=== PATIENT | female | born 1935 | race Caucasian/White ===

== ENCOUNTER 2018-09-21 15:15 | Inpatient (IN) | payer MEDICARE, BC ==
[2018-09-21] VITALS (245 sets, daily range): BP systolic 108–129; BP diastolic 58–96; PULSE 64–95; TEMP 98.1–99.1; O2SAT 83–100
[~2018-09-21] VITALS: Ht 157.5 cm; Wt 47.9 kg
[~2018-09-21 15:15] MED LIST: ASPIRIN 81M81 MG/TA2 PO; BYSTOLIC5 MG PO; CALCIUM 600MG+D1 TAB PO; CARDIZEM CD 18180 MG PO; FOSAMAX 70MG TA70 MG PO; GLUCOPHAGE500 MG/TAB PO; IPRATROPIUM BROM3 M1 IH; LEVAQUIN 750MG750 M1 PO; LEVEMIR SQ; MULTAQ400 MG PO; PERFOROMIS20 MCG/2 M IH; PREDNISONE20 MG PO; PRINIVIL40 MG PO; PULMICORT0.5 MG/2 M IH; TENORMIN 5050 MG/TAB PO; XARELTO STARTER20 MG PO; ZOCOR 20MG20 MG PO
[2018-09-21 15:47] LABS: BASO # 0.1 (0.0-0.2); BASO % 0.4 % (0.0-2.0); EOS # 0.1 (0.0-0.7); EOS % 0.4 % (0-4.0); GRAN # 9.9 (1.4-6.5); GRAN % 74.9 % (42.2-75.2); HEMOGLOBIN 14.2 g/dl (12.5-16.0); LYMPH # 1.6 (1.2-3.4); LYMPH % 12.3 % (20.0-51.0); MEAN CELL VOLUME 85 fl (80.0-100.0); MEAN CORPUSCULAR HEMOGLOBIN 28 pg (27.0-31.0); MEAN CORPUSCULAR HGB CONC 33 g/dl (33.0-37.0); MEAN PLATELET VOLUME 12.2 fl (7.4-10.4); MONO # 1.5 (0.1-0.6); MONO % 11.5 % (1.7-9.3); PLATELET COUNT 207 K/mm3 (130-400); RED BLOOD COUNT 5.06 M/mm3 (4.10-5.30); REDCELL DISTRIBUTION WIDTH-CV 13.6 % (11.5-14.5)
[2018-09-21 15:51] LABS: INR 1.1 (0.8-3.0); PROTHROMBIN TIME 12.2 SECONDS (9.7-12.8)
[2018-09-21 16:00] LABS: ALBUMIN 4.1 gm/dL (3.5-5.0); BILIRUBIN,TOTAL 1.2 mg/dL (0.0-1.0); CALCIUM 9.9 mg/dL (8.4-10.2); CREATININE, serum 0.86 (0.52-1.25); POTASSIUM 4.5 mmol/L (3.4-5.0); TOTAL PROTEIN 7.1 gm/dL (6.4-8.2)
[2018-09-21 16:14] LABS: TROPONIN-I 0.05 ng/mL (0.000-0.035)
--- NOTE | 2018-09-21 17:25 | NUR ---
report received from Rose COST SPECIALIST at 3918. Pt arrived to ICU via stretcher at 1725. Pt A/Ox3. Denies any chest pain or SOB. Pt walked to bed without any difficulty. Pt remains on Cardizem gtt at 15mg/hr. HR Afib 80-100s. VSS. Assessment complete. Discussed plan of care with pt r/t cardizem gtt and cardiology consult. Pt verbalized understanding.
[2018-09-21 18:42] LABS: COLLECTION METHOD CLEAN CATCH
--- NOTE | 2018-09-21 19:10 | NUR ---
Bedside report given to GARRY Berg.
[2018-09-21 19:26] LABS: MUCOUS Present /lpf; PH 5 (5-8); SQUAMOUS EPITHELIAL 0-2 /hpf; URINE APPEARANCE Hazy; URINE BACTERIA Rare /hpf; URINE BILIRUBIN Negative (NEGATIVE); URINE BLOOD Negative (NEGATIVE); URINE COLOR Yellow; URINE GLUCOSE Negative (NEGATIVE); URINE KETONE Trace (NEGATIVE); URINE LEUKOCYTE ESTERASE 3+ (NEGATIVE); URINE NITRATE Positive (NEGATIVE); URINE PROTEIN(semi-quant) 1+ (NEGATIVE); URINE UROBILINOGEN Negative (NEGATIVE)
--- NOTE | 2018-09-21 21:00 | NUR ---
Assisted up to bedside commode. Tolerated transfer well, but reported shortness of air after returning to bed. After approximately 5 minutes of rest, patient reported no further shortness of air. VS remained stable; HR within normal limits. Will continue to monitor.
--- NOTE | 2018-09-21 22:07 | NUR ---
Critical troponin call received at 2206: was 0.067. Dr. Nair was notifed of last 3hr critical troponin around 0. Did not notify Dr. Nair at this time as he requested to not be called for this troponin if it came back critical. Will continue to monitor.
[2018-09-22] VITALS (361 sets, daily range): BP systolic 102–151; BP diastolic 52–87; PULSE 59–110; TEMP 97.8–98.8; O2SAT 83–100
--- NOTE | 2018-09-22 03:20 | NUR ---
Patient awake and resting in bed. No complaints at this time. Will continue to monitor.
[2018-09-22 06:11] LABS: BASO % 0.4 % (0.0-2.0); EOS # 0.1 (0.0-0.7); EOS % 0.5 % (0-4.0); GRAN # 7.2 (1.4-6.5); GRAN % 74.8 % (42.2-75.2); HEMATOCRIT 39.2 % (37.0-47.0); HEMOGLOBIN 12.7 g/dl (12.5-16.0); LYMPH # 1.2 (1.2-3.4); LYMPH % 12.5 % (20.0-51.0); MEAN CELL VOLUME 86 fl (80.0-100.0); MEAN CORPUSCULAR HEMOGLOBIN 28 pg (27.0-31.0); MEAN CORPUSCULAR HGB CONC 32 g/dl (33.0-37.0); MEAN PLATELET VOLUME 12.3 fl (7.4-10.4); MONO # 1.1 (0.1-0.6); MONO % 11.3 % (1.7-9.3); PLATELET COUNT 185 K/mm3 (130-400); RED BLOOD COUNT 4.56 M/mm3 (4.10-5.30); REDCELL DISTRIBUTION WIDTH-CV 13.6 % (11.5-14.5)
[2018-09-22 06:23] LABS: ALBUMIN 3.5 gm/dL (3.5-5.0); CALCIUM 9.3 mg/dL (8.4-10.2); CHOLESTEROL RISK RATIO 5.4; CREATININE, serum 0.9 (0.52-1.25); POTASSIUM 4.3 mmol/L (3.4-5.0); TOTAL PROTEIN 6.3 gm/dL (6.4-8.2)
[2018-09-22 06:42] LABS: TROPONIN-I 0.056 ng/mL (0.000-0.035)
--- NOTE | 2018-09-22 06:56 | NUR ---
Critical Troponin not called to Acute Coordinator as it is trending downward. Patient asymptomatic.
--- NOTE | 2018-09-22 07:28 | NUR ---
Bedside report recieved from GARRY Berg. Patient participates with all questions asked answered. Cardizem gtt infusing at 5mg/hr and concentration verified. Patient denies needs or pain at this time. POC discussed and care assumed.
--- NOTE | 2018-09-22 07:28 | NUR ---
Bedside report given to GARRY Jim. Patient care transfered.
--- NOTE | 2018-09-22 08:11 | NUR ---
Dr. Nair rounds at this time. POC discussed to include AM AISHA cardioversion with anesthsia. Patient and family questions are asked and answered. Care ongoing.
--- NOTE | 2018-09-22 09:30 | NUR ---
Patient to CT via WC with serology technician for ordered CT of chest.
--- NOTE | 2018-09-22 09:50 | NUR ---
Patient returns to ICU 4 and is replaced to monitors. LW IV blown in CT and 22g to LAC restarted by radiology. Care resumed.
--- NOTE | 2018-09-22 10:20 | NUR ---
Dr. Whaley rounds at this time. Orders as entered CPOE.
--- NOTE | 2018-09-22 10:56 | NUR ---
Anesthesia paged and call back number provided for notification of AM AISHA cardioversion. Awaiting reply.
--- NOTE | 2018-09-22 11:18 | NUR ---
Return called recieved from AA who confirm that 0830 procedure time for AISHA cardioversion 09/23/18 can be accomodated.
--- NOTE | 2018-09-22 12:53 | NUR ---
SW attended clinical rounds to discuss discharge planning. Patient lives independently at home with her daughter and plans to return there upon discharge. Patient's PCP is Dr Olivo and she obtains prescriptions from [facility]. Patient has a walker and cane at home but does not use them regularly. Patient reports she had [facility] in 2014 but does not currently use any home health services. Patient does not have a DPOA and is not interested in completing one at this time. SW does not anticipate any discharge needs.
--- NOTE | 2018-09-22 15:30 | NUR ---
Report received from Diandra CASTAÑEDA. Patient up to BR and voids without diff. Brief changed at this time. Denies further needs.
--- NOTE | 2018-09-22 19:36 | NUR ---
Bedside report received from GARRY Chang.
--- NOTE | 2018-09-22 19:37 | NUR ---
Report given to Anastasia CASTAÑEDA
--- NOTE | 2018-09-22 20:00 | NUR ---
Assessment complete. Patient resting in bed at this time watching tv. No complaints of pain or SOB. Patient does not appear to be in any distress. Patient remains in afib. No other significant findings in assessment. Patient has no current needs at this time. Will continue to monitor. Call light within reach.
[2018-09-23] VITALS (437 sets, daily range): BP systolic 125–163; BP diastolic 70–118; PULSE 85–117; TEMP 98–99.1; O2SAT 81–100
--- NOTE | 2018-09-23 | NUR ---
Patient asleep, resting comfortably in bed. No complaints of pain. No signs of distress. Vital signs remain stable. Will continue to monitor. Call light within reach.
--- NOTE | 2018-09-23 04:00 | NUR ---
Patient asleep at this time. Resting comfortably. Vitals remain stable, patient continues to be in afib. No current needs. Will continue to monitor. Call light within reach.
[2018-09-23 05:22] LABS: BASO % 0.4 % (0.0-2.0); EOS # 0.1 (0.0-0.7); EOS % 0.7 % (0-4.0); GRAN # 7.8 (1.4-6.5); GRAN % 73.5 % (42.2-75.2); HEMATOCRIT 38.1 % (37.0-47.0); HEMOGLOBIN 12.4 g/dl (12.5-16.0); LYMPH # 1.3 (1.2-3.4); LYMPH % 11.7 % (20.0-51.0); MEAN CELL VOLUME 85 fl (80.0-100.0); MEAN CORPUSCULAR HEMOGLOBIN 28 pg (27.0-31.0); MEAN CORPUSCULAR HGB CONC 33 g/dl (33.0-37.0); MEAN PLATELET VOLUME 11.9 fl (7.4-10.4); MONO # 1.4 (0.1-0.6); MONO % 13.2 % (1.7-9.3); PLATELET COUNT 179 K/mm3 (130-400); RED BLOOD COUNT 4.47 M/mm3 (4.10-5.30); REDCELL DISTRIBUTION WIDTH-CV 13.6 % (11.5-14.5)
[2018-09-23 05:33] LABS: CALCIUM 9.1 mg/dL (8.4-10.2); CREATININE, serum 0.84 (0.52-1.25); POTASSIUM 4.3 mmol/L (3.4-5.0)
--- NOTE | 2018-09-23 07:34 | NUR ---
Bedside report given to GARRY Colindres and student nurse Nelida.
--- NOTE | 2018-09-23 08:43 | NUR ---
CONSENT SIGNED AND ON CHART FORTEE CARDIOVERSION, DR. BARR AT BEDSIDE, DALTON ESPINO AT BEDSIDE FOR AISHA, TIMEOUT NOW CONDUCTED. SEDATION ADMIN INITIAL AT 0843. BITEBLOCK IN PLACE, SUCTION AND O2 OXY MASK SET UP AND PADS PLACED ON PT.
--- NOTE | 2018-09-23 08:49 | NUR ---
CARDIONVERSION DONE, SHOCKED AT 200JUELS PT CONVERTED TO SR-90'S
--- NOTE | 2018-09-23 08:50 | NUR ---
CARDIOVERTED AT 0849 PROCEDURE COMPLETED AT 0808
--- NOTE | 2018-09-23 09:13 | NUR ---
PT D/C [facility] SEDATION RECOVERY
--- NOTE | 2018-09-23 13:03 | NUR ---
First visit from the billing control clerk. No needs right now.
[2018-09-23] MEDS ORDERED: CEFTIN 250250 MG/TAB PO (13:15)
[2018-09-23] MEDS ORDERED: ELIQUIS 2.5 PO (13:15)
[2018-09-23] MEDS ORDERED: PACERONE400 MG PO (13:17)
--- NOTE | 2018-09-23 16:35 | NUR ---
Pt d/c'ed home with family, pt VSS and pt states she feels very good and ready to go home. IV d/c'ed. D/C pt explained and given to pt and family.
== END 2018-09-23 16:35 | disposition home or self-care (01) | DRG 281 ==
LOC: COL.ER 15:15 → ICU 15:50
PROVIDERS: Emergency Medicine; Physician Assistant; ADMIT Hospitalist
PROC: 5A2204Z Restoration of Cardiac Rhythm, Single (ICD-10-PCS; principal; 2018-09-23)
DX: I48.0 Paroxysmal atrial fibrillation (principal); I21.A1 Myocardial infarction type 2; J90 Pleural effusion, not elsewhere classified; N39.0 Urinary tract infection, site not specified; I10 Essential (primary) hypertension; I25.10 Atherosclerotic heart disease of native coronary artery without angina pectoris; Z95.1 Presence of aortocoronary bypass graft; E78.5 Hyperlipidemia, unspecified; E11.9 Type 2 diabetes mellitus without complications; F17.210 Nicotine dependence, cigarettes, uncomplicated; I34.0 Nonrheumatic mitral (valve) insufficiency; B96.20 Unspecified Escherichia coli [E. coli] as the cause of diseases classified elsewhere
CPT/HCPCS: 99222-AI; 99232-AI; 99239; A4216; J0696; J1650; J1815; J2405; J2704; Q9967

== ENCOUNTER 2018-10-05 06:49 | Day surgery (SDC) | payer MEDICARE, BC ==
[~2018-10-05] VITALS: Ht 157.5 cm; Wt 48.1 kg
[2018-10-05] VITALS (12 sets, daily range): BP systolic 134–149; BP diastolic 76–105; PULSE 74–120; TEMP 98
[~2018-10-05 06:49] MED LIST changes: +CEFTIN 250250 MG/TAB PO; +ELIQUIS 2.5 PO; +PACERONE400 MG PO
[2018-10-05 07:33] LABS: PROTHROMBIN TIME 22.8 SECONDS (9.7-12.8)
[2018-10-05] MEDS ORDERED: IPRATROPIUM BROM3 M1 IH (08:06)
[2018-10-05 08:10] LABS: THYROID STIMULATING HORMONE 2.2 uIU/mL (0.465-4.680)
[2018-10-05] MEDS ORDERED: PACERONE200 MG PO (08:10)
[2018-10-05] MEDS ORDERED: ELIQUIS 2.5 PO (08:21)
[2018-10-05] MEDS ORDERED: VITAMIN D31000 I1 PO (08:21)
[2018-10-05] MEDS ORDERED: XOPENEX 0.0.63 MG/3 IH (09:20)
--- NOTE | 2018-10-05 09:24 | NUR ---
Pt arrived for scheduled outpatient cardioversion. Medications and allergies reviewed and patient is currently on amiodarone 400mg bid and eliquis 2.5mg bid. Pt reported that she took both of these medications this am and has not missed any doses since starting these medication. Baseline VS and EKG verifying atrial fibrillation obtained and IV patent. Consent and allergies verified. A time out was peformed at 0900 with all staff present. The patient received 2mg of versed and 50mg of fentanyl at 0901. Adequate sedation of RASS -2 achieved and the patient received a synchronized cardioversion with 200 jou[address] Ayala. The pt did have sucessful return to sinus rhythm with some PAC's with a rate in the 70's. Dr. Ayala updated the family and patient at bedside regarding the plan of care and nursing report to Judith CASTAÑEDA who assumes care of patient.
--- NOTE | 2018-10-05 11:03 | NUR ---
Discharge instructions given to pt.pt verbalizes understanding.INT removed,catheter tip intact.Pt escorted out via wheelchair by this nurse.
[2018-10-06] MEDS ORDERED: LASIX 20MG TABL20 MG PO (11:38)
[2018-10-06] MEDS ORDERED: K-TAB20 PO (11:38)
== END 2018-10-05 11:21 | disposition home or self-care (01) ==
LOC: COL.CAR 06:49
PROVIDERS: Internal Medicine Cardiovascular Disease
DX: I48.0 Paroxysmal atrial fibrillation (principal); I42.9 Cardiomyopathy, unspecified; I25.10 Atherosclerotic heart disease of native coronary artery without angina pectoris; Z95.1 Presence of aortocoronary bypass graft; I10 Essential (primary) hypertension; I34.0 Nonrheumatic mitral (valve) insufficiency; I25.2 Old myocardial infarction; E78.2 Mixed hyperlipidemia; E11.9 Type 2 diabetes mellitus without complications; Z88.0 Allergy status to penicillin; Z79.84 Long term (current) use of oral hypoglycemic drugs
CPT/HCPCS: J2250; J3010; J7030

== ENCOUNTER 2018-10-06 08:15 | Emergency (ER) | payer MEDICARE, BC ==
[~2018-10-06] VITALS: Ht 157.5 cm; Wt 48.2 kg
[~2018-10-06 08:15] MED LIST changes: +PACERONE200 MG PO; +VITAMIN D31000 I1 PO; +XOPENEX 0.0.63 MG/3 IH
[2018-10-06 08:20] VITALS: TEMP 98.2
[2018-10-06 09:02] LABS: BASO # 0.1 (0.0-0.2); BASO % 0.4 % (0.0-2.0); EOS % 0.2 % (0-4.0); GRAN # 9.5 (1.4-6.5); GRAN % 83.1 % (42.2-75.2); HEMATOCRIT 42.1 % (37.0-47.0); HEMOGLOBIN 13.5 g/dl (12.5-16.0); LYMPH # 0.8 (1.2-3.4); LYMPH % 6.8 % (20.0-51.0); MEAN CELL VOLUME 85 fl (80.0-100.0); MEAN CORPUSCULAR HEMOGLOBIN 27 pg (27.0-31.0); MEAN CORPUSCULAR HGB CONC 32 g/dl (33.0-37.0); MEAN PLATELET VOLUME 12.1 fl (7.4-10.4); MONO % 8.9 % (1.7-9.3); PLATELET COUNT 187 K/mm3 (130-400); RED BLOOD COUNT 4.93 M/mm3 (4.10-5.30); REDCELL DISTRIBUTION WIDTH-CV 13.9 % (11.5-14.5)
[2018-10-06 09:04] LABS: INR 1.5 (0.8-3.0); PROTHROMBIN TIME 17.1 SECONDS (9.7-12.8)
[2018-10-06 09:18] LABS: ALANINE AMINOTRANSFERASE 21 U/L (9-52); ALBUMIN 3.7 gm/dL (3.5-5.0); ALKALINE PHOSPHATASE 64 U/L (50-136); ANION GAP 8 mmol/L (7-16); AST,SGOT 23 U/L (15-37); BILIRUBIN,TOTAL 0.9 mg/dL (0.0-1.0); BLOOD UREA NITROGEN 35 mg/dL (7-17); CALCIUM 9.5 mg/dL (8.4-10.2); CARBON DIOXIDE 25 mmol/L (22-30); CHLORIDE 105 mmol/L (98-107); CREATININE, serum 1.08 (0.52-1.25); GLUCOSE 141 mg/dL (74-106); LIPASE 94 U/L (23-300); POTASSIUM 4.2 mmol/L (3.4-5.0); SODIUM 137 mmol/L (137-145); TOTAL PROTEIN 6.6 gm/dL (6.4-8.2)
[2018-10-06 09:27] LABS: TROPONIN-I < 0.012 ng/mL (0.000-0.035)
[2018-10-06 10:56] LABS: COLLECTION METHOD CLEAN CATCH
[2018-10-06 11:03] LABS: PH 6 (5-8); SQUAMOUS EPITHELIAL 0-2 /hpf; URINE APPEARANCE Clear; URINE BACTERIA None Seen /hpf; URINE BILIRUBIN Negative (NEGATIVE); URINE BLOOD 1+ (NEGATIVE); URINE COLOR Straw; URINE GLUCOSE Negative (NEGATIVE); URINE KETONE 1+ (NEGATIVE); URINE LEUKOCYTE ESTERASE Negative (NEGATIVE); URINE NITRATE Negative (NEGATIVE); URINE PROTEIN(semi-quant) Negative (NEGATIVE); URINE UROBILINOGEN Negative (NEGATIVE); URINE WBC 0-2 /hpf
[2018-10-06] MEDS ORDERED: K-TAB20 PO (11:38)
[2018-10-06] MEDS ORDERED: LASIX 20MG TABL20 MG PO (11:38)
[2018-10-06 11:58] VITALS: BP 138/73; PULSE 85
== END 2018-10-06 12:00 | disposition home or self-care (01) ==
LOC: COL.ER 08:15
PROVIDERS: Emergency Medicine
DX: I11.0 Hypertensive heart disease with heart failure (principal); I50.9 Heart failure, unspecified; E78.5 Hyperlipidemia, unspecified; I48.91 Unspecified atrial fibrillation; Z79.82 Long term (current) use of aspirin; F17.210 Nicotine dependence, cigarettes, uncomplicated; Z95.1 Presence of aortocoronary bypass graft; Z79.84 Long term (current) use of oral hypoglycemic drugs
CPT/HCPCS: J1940; J2550; J3475

== ENCOUNTER 2018-11-07 17:43 | Emergency (ER) | payer MEDICARE, BC ==
[~2018-11-07] VITALS: Ht 157.5 cm; Wt 48.2 kg
[~2018-11-07 17:43] MED LIST changes: +K-TAB20 PO; +LASIX 20MG TABL20 MG PO
[2018-11-07 17:45] VITALS: TEMP 98.3
[2018-11-07 18:29] LABS: BASO # 0.1 (0.0-0.2); BASO % 0.6 % (0.0-2.0); EOS # 0.1 (0.0-0.7); EOS % 0.4 % (0-4.0); GRAN # 11.9 (1.4-6.5); GRAN % 82.2 % (42.2-75.2); HEMATOCRIT 37.8 % (37.0-47.0); HEMOGLOBIN 12.4 g/dl (12.5-16.0); LYMPH # 0.8 (1.2-3.4); LYMPH % 5.3 % (20.0-51.0); MEAN CELL VOLUME 85 fl (80.0-100.0); MEAN CORPUSCULAR HEMOGLOBIN 28 pg (27.0-31.0); MEAN CORPUSCULAR HGB CONC 33 g/dl (33.0-37.0); MEAN PLATELET VOLUME 11.5 fl (7.4-10.4); MONO # 1.6 (0.1-0.6); MONO % 10.7 % (1.7-9.3); PLATELET COUNT 217 K/mm3 (130-400); RED BLOOD COUNT 4.47 M/mm3 (4.10-5.30); REDCELL DISTRIBUTION WIDTH-CV 15.1 % (11.5-14.5)
[2018-11-07 18:41] LABS: ALBUMIN 3.7 gm/dL (3.5-5.0); BILIRUBIN,TOTAL 1.2 mg/dL (0.0-1.0); C-REACTIVE PROTEIN 2.4 mg/dL (0.0-0.9); CALCIUM 9.1 mg/dL (8.4-10.2); CREATININE, serum 0.91 (0.52-1.25); POTASSIUM 3.9 mmol/L (3.4-5.0); TOTAL PROTEIN 6.7 gm/dL (6.4-8.2)
[2018-11-07 18:51] LABS: TROPONIN-I 0.029 ng/mL (0.000-0.035)
[2018-11-07] MEDS ORDERED: LASIX 20MG TABL20 MG PO (19:15)
[2018-11-07 20:11] VITALS: BP 156/89; PULSE 85
== END 2018-11-07 20:13 | disposition home or self-care (01) ==
LOC: COL.ER 17:43
PROVIDERS: Family Medicine
DX: I50.9 Heart failure, unspecified (principal); I48.91 Unspecified atrial fibrillation; Z79.84 Long term (current) use of oral hypoglycemic drugs; Z79.82 Long term (current) use of aspirin
CPT/HCPCS: J1940; J7030

== ENCOUNTER 2018-12-30 10:06 | Day surgery (SDC) | payer MEDICARE, BC ==
[~2018-12-30] VITALS: Ht 157.5 cm; Wt 44.6 kg
[2018-12-30] VITALS (7 sets, daily range): BP systolic 151–166; BP diastolic 90–109; PULSE 74–129; TEMP 97.7
[2018-12-30] MEDS ORDERED: LASIX 20MG TABL20 MG PO (10:31)
[2018-12-30] MEDS ORDERED: MULTI VITAMINS1 TAB PO (10:32)
[2018-12-30 10:56] LABS: INR 1.9 (0.8-3.0); PROTHROMBIN TIME 22.9 SECONDS (9.7-12.8)
[2018-12-30 10:58] LABS: HEMOGLOBIN 11.7 g/dl (12.5-16.0); MEAN CELL VOLUME 85 fl (80.0-100.0); MEAN CORPUSCULAR HEMOGLOBIN 27 pg (27.0-31.0); MEAN CORPUSCULAR HGB CONC 32 g/dl (33.0-37.0); PLATELET COUNT 179 K/mm3 (130-400); RED BLOOD COUNT 4.32 M/mm3 (4.10-5.30); REDCELL DISTRIBUTION WIDTH-CV 15.6 % (11.5-14.5)
[2018-12-30 10:59] LABS: HEMATOCRIT 36.8 % (37.0-47.0)
[2018-12-30 11:03] LABS: CALCIUM 9.2 mg/dL (8.4-10.2); CREATININE, serum 1.15 (0.52-1.25); POTASSIUM 3.6 mmol/L (3.4-5.0)
--- NOTE | 2018-12-30 13:41 | NUR ---
Discharge instructions given to pt.pt verbalizes understanding.INT removed,catheter tip intact.
== END 2018-12-30 15:38 | disposition home or self-care (01) ==
LOC: COL.CAR 10:06
PROVIDERS: Internal Medicine Cardiovascular Disease
DX: I48.0 Paroxysmal atrial fibrillation (principal); I25.10 Atherosclerotic heart disease of native coronary artery without angina pectoris; I10 Essential (primary) hypertension; I34.0 Nonrheumatic mitral (valve) insufficiency; I25.2 Old myocardial infarction; E78.2 Mixed hyperlipidemia; E11.9 Type 2 diabetes mellitus without complications; Z95.1 Presence of aortocoronary bypass graft; Z88.1 Allergy status to other antibiotic agents; Z79.82 Long term (current) use of aspirin; Z79.01 Long term (current) use of anticoagulants; Z79.84 Long term (current) use of oral hypoglycemic drugs
CPT/HCPCS: J2704; J7120

== ENCOUNTER 2019-01-01 16:32 | Emergency (ER) | payer MEDICARE, BC ==
[~2019-01-01] VITALS: Ht 157.5 cm; Wt 44.1 kg
[~2019-01-01 16:32] MED LIST changes: +MULTI VITAMINS1 TAB PO
[2019-01-01 16:36] VITALS: TEMP 97.6
[2019-01-01 17:08] LABS: BASO # 0.1 (0.0-0.2); BASO % 0.4 % (0.0-2.0); EOS % 0.1 % (0-4.0); GRAN # 10.2 (1.4-6.5); GRAN % 80.9 % (42.2-75.2); HEMATOCRIT 42.6 % (37.0-47.0); HEMOGLOBIN 13.6 g/dl (12.5-16.0); LYMPH # 0.9 (1.2-3.4); LYMPH % 7.4 % (20.0-51.0); MEAN CELL VOLUME 84 fl (80.0-100.0); MEAN CORPUSCULAR HEMOGLOBIN 27 pg (27.0-31.0); MEAN CORPUSCULAR HGB CONC 32 g/dl (33.0-37.0); MEAN PLATELET VOLUME 11.9 fl (7.4-10.4); MONO # 1.4 (0.1-0.6); MONO % 10.7 % (1.7-9.3); PLATELET COUNT 213 K/mm3 (130-400); RED BLOOD COUNT 5.07 M/mm3 (4.10-5.30); REDCELL DISTRIBUTION WIDTH-CV 15.4 % (11.5-14.5)
[2019-01-01 17:09] LABS: INR 1.6 (0.8-3.0); PROTHROMBIN TIME 19.1 SECONDS (9.7-12.8)
[2019-01-01 17:17] LABS: ALANINE AMINOTRANSFERASE 43 U/L (9-52); ALBUMIN 4.1 gm/dL (3.5-5.0); ALKALINE PHOSPHATASE 94 U/L (50-136); ANION GAP 11 mmol/L (7-16); AST,SGOT 56 U/L (15-37); BILIRUBIN,TOTAL 1.2 mg/dL (0.0-1.0); BLOOD UREA NITROGEN 27 mg/dL (7-17); C-REACTIVE PROTEIN 2.2 mg/dL (0.0-0.9); CARBON DIOXIDE 28 mmol/L (22-30); CHLORIDE 103 mmol/L (98-107); CREATININE, serum 1.01 (0.52-1.25); GLUCOSE 169 mg/dL (74-106); POTASSIUM 3.7 mmol/L (3.4-5.0); SODIUM 142 mmol/L (137-145); TOTAL PROTEIN 7.4 gm/dL (6.4-8.2)
[2019-01-01 17:26] LABS: TROPONIN-I < 0.012 ng/mL (0.000-0.035)
[2019-01-01 19:49] LABS: COLLECTION METHOD CLEAN CATCH
[2019-01-01 19:58] LABS: MUCOUS Present /lpf; PH 7 (5-8); SQUAMOUS EPITHELIAL None Seen /hpf; URINE APPEARANCE Clear; URINE BACTERIA None Seen /hpf; URINE BILIRUBIN Negative (NEGATIVE); URINE BLOOD Negative (NEGATIVE); URINE COLOR Yellow; URINE GLUCOSE Negative (NEGATIVE); URINE KETONE Negative (NEGATIVE); URINE LEUKOCYTE ESTERASE Trace (NEGATIVE); URINE NITRATE Negative (NEGATIVE); URINE PROTEIN(semi-quant) Negative (NEGATIVE); URINE RBC 0-2 /hpf; URINE UROBILINOGEN Negative (NEGATIVE)
[2019-01-01 20:19] VITALS: BP 143/85; PULSE 88
== END 2019-01-01 20:21 | disposition home or self-care (01) ==
LOC: COL.ER 16:32
PROVIDERS: Emergency Medicine
DX: R06.02 Shortness of breath (principal); F17.210 Nicotine dependence, cigarettes, uncomplicated; I10 Essential (primary) hypertension; E11.9 Type 2 diabetes mellitus without complications; I48.91 Unspecified atrial fibrillation; I25.10 Atherosclerotic heart disease of native coronary artery without angina pectoris; Z95.1 Presence of aortocoronary bypass graft; Z79.82 Long term (current) use of aspirin

== ENCOUNTER 2019-01-29 18:19 | Inpatient (IN) | payer MEDICARE, BC ==
[~2019-01-29] VITALS: Ht 157.5 cm; Wt 42.7 kg
[2019-01-29 18:59] LABS: HEMOGLOBIN 12.6 g/dl (12.5-16.0); MEAN CELL VOLUME 83 fl (80.0-100.0); MEAN CORPUSCULAR HEMOGLOBIN 26 pg (27.0-31.0); MEAN CORPUSCULAR HGB CONC 32 g/dl (33.0-37.0); MEAN PLATELET VOLUME 11.4 fl (7.4-10.4); PLATELET COUNT 265 K/mm3 (130-400); RED BLOOD COUNT 4.84 M/mm3 (4.10-5.30); REDCELL DISTRIBUTION WIDTH-CV 14.5 % (11.5-14.5)
[2019-01-29 19:04] LABS: ARTERIAL BLD GAS O2 SATURATION 93.8 % (92-100); ARTERIAL BLD GAS TCO2 CT 26.2; ARTERIAL BLOOD GAS BASE EXCESS 2.3 (-2-2); ARTERIAL BLOOD GAS HCO3 25.1 meq/L (22-26); ARTERIAL BLOOD GAS PCO2 33.2 mmHg (35-45); ARTERIAL BLOOD GAS PO2 65.4 mmHg (80-100)
[2019-01-29 19:06] LABS: INR 1.4 (0.8-3.0); PROTHROMBIN TIME 15.9 SECONDS (9.7-12.8)
[2019-01-29 19:09] LABS: ALANINE AMINOTRANSFERASE 34 U/L (9-52); ALKALINE PHOSPHATASE 100 U/L (50-136); ANION GAP 11 mmol/L (7-16); AST,SGOT 46 U/L (15-37); BILIRUBIN,TOTAL 1.1 mg/dL (0.0-1.0); BLOOD UREA NITROGEN 21 mg/dL (7-17); CALCIUM 9.4 mg/dL (8.4-10.2); CARBON DIOXIDE 29 mmol/L (22-30); CHLORIDE 100 mmol/L (98-107); CREATININE, serum 0.79 (0.52-1.25); GLUCOSE 195 mg/dL (74-106); POTASSIUM 3.8 mmol/L (3.4-5.0); SODIUM 140 mmol/L (137-145); TOTAL PROTEIN 7.2 gm/dL (6.4-8.2)
[2019-01-29 19:39] LABS: TROPONIN-I < 0.012 ng/mL (0.000-0.035)
[2019-01-29 19:41] LABS: LYMPHOCYTE 2 % (20.0-51.0); NEUTROPHILS 91 % (42.0-75.2); PLATELET ESTIMATE NORMAL (NORMAL)
--- NOTE | 2019-01-29 22:15 | NUR ---
Pt was brought to 316 via w/c from ER. Assessment completed. Alert and orientated. Tele on with HR irreg. Lung sounds diminished throughout. Denies feeling as SOA as she was. O2 on at 1L/NC. Reports she uses O2 at 2L every night at home. Skin dry and tents. Reports mouth very dry. INT in right hand. Repositions self. No edema noted to ju HUNTER. Call light within reach. Will continue to monitor.
[2019-01-29 22:43] VITALS: BP 148/82; PULSE 98; TEMP 98.1
[2019-01-29 23:51] VITALS: BP 130/76; PULSE 108; TEMP 97.9
--- NOTE | 2019-01-30 03:55 | NUR ---
Pt calls for assist to the BR. Ambulates with steady gait. Voices no c/o this AM. Back to bed. Call light within reach.
[2019-01-30 04:43] VITALS: BP 135/57; PULSE 71; TEMP 98
--- NOTE | 2019-01-30 06:00 | NUR ---
RT was up and said they had put RM 316 back down to 1L/O2 and she continues to sat in mid to upper 90's.
[2019-01-30 08:25] VITALS: BP 132/65; PULSE 74; TEMP 98.3
[2019-01-30 08:31] LABS: BASO # 0.1 (0.0-0.2); BASO % 0.5 % (0.0-2.0); EOS # 0.1 (0.0-0.7); EOS % 0.5 % (0-4.0); GRAN # 7.4 (1.4-6.5); GRAN % 77.5 % (42.2-75.2); LYMPH # 0.8 (1.2-3.4); LYMPH % 8.4 % (20.0-51.0); MEAN CELL VOLUME 83 fl (80.0-100.0); MEAN CORPUSCULAR HGB CONC 32 g/dl (33.0-37.0); MONO # 1.2 (0.1-0.6); MONO % 12.7 % (1.7-9.3); PLATELET COUNT 214 K/mm3 (130-400); REDCELL DISTRIBUTION WIDTH-CV 14.5 % (11.5-14.5)
[2019-01-30 08:32] LABS: HEMATOCRIT 32.3 % (37.0-47.0); HEMOGLOBIN 10.3 g/dl (12.5-16.0); MEAN CORPUSCULAR HEMOGLOBIN 26 pg (27.0-31.0)
[2019-01-30 08:38] LABS: CALCIUM 8.6 mg/dL (8.4-10.2); CREATININE, serum 0.82 (0.52-1.25); MAGNESIUM 1.7 mg/dL (1.6-2.3); POTASSIUM 3.3 mmol/L (3.4-5.0)
--- NOTE | 2019-01-30 09:07 | NUR ---
Pt assessment completed and charted. Pt resting in bed on 1LNC. Denies SOB, independent in room. denies chest pain, dizziness, N/V, pain. Bilateral ankle edema 1+ noted. RWR INT IV flushes with no complications. Morning medications administered per AUG.
--- NOTE | 2019-01-30 10:00 | NUR ---
ILIANA rounded with the team. The pt's PCP is Dr. Olivo and event marketing specialist is Dr. Nair. The pt reports she was scheduled to have a cardiac catherization on Wednesday. Following rounds ILIANA met with the pt and pt's daughter, Lilo Zavala to discuss a discharge plan. The pt lives in [place] with Lilo. The pt has a cane and a walker she does not use. The pt uses oxygen at night and receives supplies from [employer]. The pt receives medications from [facility] with no difficulties. If home health is recommended; pt prefers [facility] because she they have provided services for her in the past. The pt does not have advanced directives in the EMR but was interested in obtaining a DPOA-HC form. ILIANA provided the form. ILIANA will continue to follow to ensure a safe discharge.
--- NOTE | 2019-01-30 11:24 | NUR ---
Initial visit; Patient and her daughter thanked Cost Engineer for looking in on Karoline and offering God's blessings. Karoline's father was an [employer] Cost Engineer who taught his children well. Cost Engineer will keep Karoline and her family in her prayers.
--- NOTE | 2019-01-30 11:38 | NUR ---
ILIANA spoke with nurse practitioner. Patient will have a cath tomorrow 01/31. PT and OT will be ordered after the procedure.
[2019-01-30 12:28] VITALS: BP 148/67; PULSE 86; TEMP 98.8
--- NOTE | 2019-01-30 13:27 | NUR ---
Pt noted to have 88% on sats, pt had removed O2. Pt placed back on O2 and satting at 97% 1L NC.
[2019-01-30 16:02] VITALS: BP 136/60; PULSE 82; TEMP 99
--- NOTE | 2019-01-30 18:42 | NUR ---
Pt has had uneventful day. Pt A&O, independent in room, denies chest pain, dizziness, N/V, SOB. Pt on 1L NC, satting high 90s. RWR INT IV flushes well with no complications. Pt to have heart cath procedure in morning and consent signed, all questions answered. Pt voiced no other concerns at this time. Call light within reach. Fluid restriction enforced.
[2019-01-30 19:29] VITALS: BP 136/76; PULSE 86; TEMP 98.8
--- NOTE | 2019-01-30 20:00 | NUR ---
Pt resting in bed with several family members at bedside. O2 on at 3L/NC. INT intact in L AC. Assessment complete. HR reg, LS coarse throughout. Skin warm and dry. Tender on right rib cage. Splints with blanket. Encourage to take deep breaths. Uses IS and pulls to 1000. Call light within reach. Will continue to monitor.
[2019-01-30 23:28] VITALS: BP 129/66; PULSE 84; TEMP 98.8
[2019-01-31] VITALS (12 sets, daily range): BP systolic 119–150; BP diastolic 52–82; PULSE 72–86; TEMP 97.6–98.2
[2019-01-31 06:34] LABS: BASO % 0.5 % (0.0-2.0); EOS # 0.1 (0.0-0.7); EOS % 0.7 % (0-4.0); GRAN # 6.3 (1.4-6.5); GRAN % 73.7 % (42.2-75.2); HEMOGLOBIN 10.2 g/dl (12.5-16.0); LYMPH # 0.9 (1.2-3.4); LYMPH % 10.4 % (20.0-51.0); MEAN CELL VOLUME 83 fl (80.0-100.0); MEAN CORPUSCULAR HEMOGLOBIN 26 pg (27.0-31.0); MEAN CORPUSCULAR HGB CONC 31 g/dl (33.0-37.0); MEAN PLATELET VOLUME 11.8 fl (7.4-10.4); MONO # 1.2 (0.1-0.6); MONO % 14.3 % (1.7-9.3); PLATELET COUNT 212 K/mm3 (130-400); REDCELL DISTRIBUTION WIDTH-CV 14.6 % (11.5-14.5)
[2019-01-31 06:40] LABS: HEMATOCRIT 32.5 % (37.0-47.0)
[2019-01-31 06:58] LABS: CALCIUM 8.4 mg/dL (8.4-10.2); CREATININE, serum 0.92 (0.52-1.25); MAGNESIUM 1.7 mg/dL (1.6-2.3); POTASSIUM 3.3 mmol/L (3.4-5.0)
--- NOTE | 2019-01-31 08:57 | NUR ---
Pt down for heart cath procedure at this time.
--- NOTE | 2019-01-31 09:07 | NUR ---
SEE MERGE REPORT FOR MEDICATION ADMINISTRATION TIMES WELL INTRA/POST SEDATION ASSESSMENTS.
--- NOTE | 2019-01-31 09:26 | NUR ---
Pt assessment completed and charted. Pt denies dizziness, SOB, chest pain, palpitations, N/V, numbness or tingling. Pt on 1L NC. LWR IV flushes well with no complications. Pt at heart cath procedure at this time. Pt voiced no other concerns at this time.
--- NOTE | 2019-01-31 10:55 | NUR ---
Pt back from heart cath procedure, post op vital monitoring in progress. pt instructd on 4 hour flat time. Rt femoral site with gauze and tegaderm covering site, CDI, soft to touch and no hematoma. Pt denies pain at this time, just wants to know when she "can eat". VSS, pedal pulses found by doppler. Pt voices no other concerns at this time. Call light within reach.
--- NOTE | 2019-01-31 13:06 | NUR ---
Pt post op vitals completed, pt still on flat time for 1 more hour until 1430. Pt denies pain, site is CDI, soft to touch, no hematoma. Call light within reach. NO other concerns voiced at this time.
--- NOTE | 2019-01-31 14:46 | NUR ---
SW followed up with patient about discharge plan. Patient reports would like [facility] once she is discharged. ILIANA spoke with nurse practitioner about patient request. Patient may discharge today or tomorrow, pending cardiology visit. ILIANA conacted and faxed referral to [facility].
--- NOTE | 2019-01-31 16:48 | NUR ---
Pt on Q4 blood sugar checks. 1600 BS was 400. Pt administered 10 units Novolog per MAR and sliding scale. Hospitalist aware. Pt had been NPO for cath procedure this morning. Ate lunch and smoothie between [id number]. Will recheck blood sugar.
--- NOTE | 2019-01-31 17:38 | NUR ---
Pt blood sugar rechecked, it is 367 at this time. Hospitalist notified, this nurse ordered to give more insulin per sliding scale. Pt administered 8 units of Novolog.
--- NOTE | 2019-02-01 02:43 | NUR ---
Patient resting in bed. Denies having any pain. Alert and oriented. Pulses strong. Very cooperative with cares. IV patent, flushed. Glucose level was 198 at beginning of shift, upon recheck, it was 74. Denies any further needs at this time. Call light within reach.
[2019-02-01 03:50] VITALS: BP 140/70; PULSE 67; TEMP 97.4
--- NOTE | 2019-02-01 05:25 | NUR ---
Patient had uneventful night. Resting in bed. Denied any pain. Call light within reach.
[2019-02-01 06:27] LABS: CALCIUM 8.8 mg/dL (8.4-10.2); CREATININE, serum 1.06 (0.52-1.25); MAGNESIUM 2.2 mg/dL (1.6-2.3)
--- NOTE | 2019-02-01 06:57 | NUR ---
Report given to GARRY Drake.
[2019-02-01 07:14] VITALS: BP 162/99; PULSE 70; TEMP 98.3
--- NOTE | 2019-02-01 09:57 | NUR ---
Pt assessment completed and charted. Pt up with therapy walking halls w/ steady gait. Pt denies SOB, dizziness, N/V, chest pain. 1+ edema noted to ankles, per pt "feels like it is improving". LWR INT IV flushes with no complications. Rt femoral heart cath site is CDI with gauze and tegaderm in place, soft to touch, no hematoma. Pt denies pain to site. Pt on room air. No other concerns voiced at this time.
[2019-02-01] MEDS ORDERED: NORVASC2.5 MG PO (10:23)
[2019-02-01 11:19] VITALS: BP 133/73; PULSE 77; TEMP 97.7
[2019-02-01] MEDS ORDERED: ALDACTONE 25MG25 M1 PO (11:27)
[2019-02-01] MEDS ORDERED: COREG 3.123.125 MG/T PO (11:27)
[2019-02-01] MEDS ORDERED: NITROSTAT0.4 MG/TAB SL (11:27)
[2019-02-01] MEDS ORDERED: LASIX 20MG TABL20 MG PO (11:28)
--- NOTE | 2019-02-01 11:50 | NUR ---
Patient will discharge home today with her daughter and [facility] for nursing, PT and OT. ILIANA presented IM to patient and daughter. Patient signed and declined a copy. ILIANA will fax discharge orders to [facility] once they're completed.
--- NOTE | 2019-02-01 17:16 | NUR ---
Pt blood sugar checked and noted to be 423. Administered Novolog per MAR and physician notified. Pt to be discharged. Blood sugar checked prior to discharging, 219. Hospitalist in room at time. Pt administered Novolog per MAR. All discharge instructions discussed and reviewed with patient and family. All questions answered. No other concerns voiced at this time. Pt escorted out via WC by nursing staff.
== END 2019-02-01 16:00 | disposition home health service (06) | DRG 287 ==
LOC: COL.ER 18:19 → MEDICAL 19:29
PROVIDERS: Family Medicine; Hospitalist; Nurse Practitioner Family; ADMIT Family Medicine
PROC: 4A023N7 Measurement of Cardiac Sampling and Pressure, Left Heart, Percutaneous Approach (ICD-10-PCS; principal; 2019-01-31)
PROC: B2111ZZ Fluoroscopy of Multiple Coronary Arteries using Low Osmolar Contrast (ICD-10-PCS; 2019-01-31)
PROC: B2131ZZ Fluoroscopy of Multiple Coronary Artery Bypass Grafts using Low Osmolar Contrast (ICD-10-PCS; 2019-01-31)
DX: I11.0 Hypertensive heart disease with heart failure (principal); I50.43 Acute on chronic combined systolic (congestive) and diastolic (congestive) heart failure; I25.10 Atherosclerotic heart disease of native coronary artery without angina pectoris; E78.5 Hyperlipidemia, unspecified; E11.9 Type 2 diabetes mellitus without complications; I34.0 Nonrheumatic mitral (valve) insufficiency; I48.91 Unspecified atrial fibrillation; E87.6 Hypokalemia; Z79.84 Long term (current) use of oral hypoglycemic drugs; Z79.01 Long term (current) use of anticoagulants; Z99.81 Dependence on supplemental oxygen; Z95.1 Presence of aortocoronary bypass graft; Z87.891 Personal history of nicotine dependence; Z87.01 Personal history of pneumonia (recurrent); Z88.1 Allergy status to other antibiotic agents
CPT/HCPCS: 99222-AI; 99232-AI; 99239; A4216; J0696; J1644; J1815; J1940; J2250; J2405; J3010; J3475; Q9967